=== PATIENT | female | born 1990 | race Caucasian/White ===

== ENCOUNTER 2022-02-13 18:03 | Emergency (ER) | payer SELFPAY ==
[2022-02-13] MEDS ORDERED: AMOX TR-K CLV1 EAC4 PO (20:11)
== END 2022-02-13 20:21 | disposition home or self-care (01) ==
LOC: ER1 18:03
DX: S51.852A Open bite of left forearm, initial encounter (principal); S10.93XA Contusion of unspecified part of neck, initial encounter; S09.93XA Unspecified injury of face, initial encounter; K13.0 Diseases of lips; W50.3XXA Accidental bite by another person, initial encounter; Z88.1 Allergy status to other antibiotic agents; Y92.410 Unspecified street and highway as the place of occurrence of the external cause; Y99.0 Civilian activity done for income or pay
CPT/HCPCS: 99283